=== PATIENT | male | born 1940 | race Caucasian/White ===

== ENCOUNTER → 2016-10-19 | Outpatient (CLI) | payer MEDICARE ==
--- NOTE | 2016-10-19 13:00 | REP ---
Clinical: Renal cysts. Comparison: None. Technique: Real time chadwick scale and color evaluation using curved array transducer. Findings: Multiple bilateral renal cysts are appreciated along with increased parenchymal echogenicity and consistent with age-related chronic medical renal disease. No hydronephrosis, nephrolithiasis, or perinephric fluid is appreciated. Right kidney measures 11.5 x 6.6 x 5.8 cm with multiple simple and presumed complex cysts. Largest simple cysts are identified in the upper pole measuring 1.4 and 1.6 cm maximal diameter each. Complex lesions likely represent cysts although subtle mass cannot definitively be excluded. Left kidney measures 11.6 x 6.9 x 6.5 cm with multiple simple and presumed complex cysts. Largest simple cysts are identified in the mid pole measuring 3.3 cm diameter and upper pole measuring 2.7 cm maximal diameter each. Complex lesions likely represent cysts although subtle mass cannot definitively be excluded. An enlarged heterogeneous prostate gland is appreciated with scattered parenchymal calcifications and measures 5.9 x 5.5 x 5.0 cm. The bladder is unremarkable and demonstrates bilateral ureteral jets without mass lesion or wall thickening. Prevoid volume equals 640 ml. Postvoid volume equals 543 ml. Postvoid residual equals 85% and may be secondary to outlet obstruction by prostate gland. Impression: 1. Evidence for chronic medical renal disease including simple and presumed complex cysts. However, subtle mass lesion masking as complex cyst cannot definitively be excluded and follow-up ultrasound or pre and postcontrast CT may be of value. 2. Increased postvoid residual of approximately 85% during examination may be secondary to outlet obstruction by enlarged heterogeneous prostate gland. The bladder is otherwise normal in appearance and without wall thickening or mass lesion. Signed by Christopher Damian MD 10/19/2016 12:51 P
== END ==
LOC: M RAD 11:07
PROVIDERS: ATTEND Internal Medicine Nephrology
DX: N28.1 Cyst of kidney, acquired (principal); R39.198 Other difficulties with micturition